=== PATIENT | male | born 1980 | race Hispanic/Latino ===

== ENCOUNTER 2021-06-26 09:08 | Emergency (ER) | payer SELFPAY ==
[2021-06-26 09:24] VITALS: BP 137/89
[2021-06-26] MEDS ORDERED: TETANUS,DIPH,PERTUSS(ACELL) VACCINE 0.5 ML SYRINGE IM ONE (12:48)
[2021-06-26] MEDS ORDERED: SODIUM CHLORIDE IRRI 500 ML 1,000 ML IR ONE (12:48)
--- NOTE | 2021-06-26 12:51 | Emergency Department Report ---
HPI - General Chief Complaint: Laceration/Recheck/Suture - HPI HPI: Room 37 The patient is a 40-year-old male present with a chief complaint of finger laceration. Patient states his work this morning [employer]kl[employer] 07: 00 when accidentally cut his right index finger on a piece of aluminum. Patient states he does not recall the last time he had a tetanus shot. Patient is requesting Dermabond instead of sutures. ED Past Medical Hx - Past Medical History Previous Medical History?: No - Surgical History Past Surgical History?: No - Family History Family history: no significant - Medications Home Medications: Home Medications Medication Instructions Recorded Confirmed Last Taken Type Ibuprofen [Motrin 800 MG tab] 800 mg PO Q8HR PRN #20 tablet 06/26/21 Unknown Rx cephALEXin [Keflex] 500 mg PO Q8HR #21 cap 06/26/21 Unknown Rx ED Review of Systems ROS: Stated complaint: CUT LT INDEX FINGER Other details as noted in HPI Constitutional: no symptoms reported Eyes: denies: eye pain ENT: denies: throat pain Respiratory: no symptoms reported Cardiovascular: denies: chest pain Endocrine: no symptoms reported Gastrointestinal: denies: abdominal pain Musculoskeletal: denies: back pain Skin: other (Finger laceration) Physical Exam - Physical Exam Vital Signs: Vital Signs 06/26/21 09:23 Temperature 97.8 F Pulse Rate 81 Respiratory 18 Rate Blood Pressure 137/89 [Right] O2 Sat by Pulse 99 Oximetry Physical Exam: GENERAL: The patient is well-developed well-nourished male sitting in chair not appearing to be in acute distress. [] HEENT: Normocephalic. Atraumatic. Extraocular motions are intact. Patient has moist mucous membranes. NECK: Supple. Trachea midline CHEST/LUNGS: There is no respiratory distress noted. HEART/CARDIOVASCULAR: Normal capillary refill right index finger SKIN: There is an approximately 2 cm laceration to the dorsum of the right index finger just proximal to the PIP NEURO: The patient is awake, alert, and oriented. The patient is cooperative. The patient has no focal neurologic deficits. The patient has normal speech. MUSCULOSKELETAL: There is full strength of flexion/extension of the right index finger ED Course Vital Signs 06/26/21 09:23 Temperature 97.8 F Pulse Rate 81 Respiratory 18 Rate Blood Pressure 137/89 [Right] O2 Sat by Pulse 99 Oximetry - Laceration /Wound Repair Right Finger Wound Location: upper extremity Wound Length (cm): 2 Wound's Depth, Shape: linear Wound Explored: clean Irrigated w/ Saline (ccs): 500 Betadine Prep?: No (100 proximal) Wound Repaired With: Dermabond ED Medical Decision Making - Differential Diagnosis Finger laceration Critical care attestation.: If time is entered above; I have spent that time in minutes in the direct care of this critically ill patient, excluding procedure time. ED Disposition Clinical Impression: Finger laceration Disposition: 01 HOME / SELF CARE / HOMELESS Is pt being admited?: No Does the pt Need Aspirin: No Condition: Stable Instructions: Laceration Care, Adult Additional Instructions: Return to the emergency department should you develop worsening symptoms, inability to tolerate food or liquids, high fever or any other concerns Prescriptions: cephALEXin [Keflex] 500 mg PO Q8HR #21 cap Ibuprofen [Motrin 800 MG tab] 800 mg PO Q8HR PRN #20 tablet PRN Reason: Pain , Severe (7-10) Referrals: PRIMARY CARE, [Primary Care Provider] - 3-5 Days Time of Disposition: 13:02
[2021-06-26] MEDS ORDERED: HYDROGEN PEROXIDE 118 ML SOLUTION TP ONE (12:55)
== END 2021-06-26 13:32 | disposition home or self-care (01) ==
LOC: ED 09:08
DX: S61.210A Laceration without foreign body of right index finger without damage to nail, initial encounter (principal); W26.8XXA Contact with other sharp object(s), not elsewhere classified, initial encounter; Y93.89 Activity, other specified; Y92.89 Other specified places as the place of occurrence of the external cause; Y99.8 Other external cause status
CPT/HCPCS: 90471; 90715; 99282